=== PATIENT | male | born 1995 | race Caucasian/White ===

== ENCOUNTER 2020-04-10 13:13 | Emergency (ER) | payer MEDICAID ==
[~2020-04-10] VITALS: Ht 172.7 cm; Wt 80.0 kg
[2020-04-10] MEDS ORDERED: HYDROXYZINE 25MG TABLET PO ONE (14:45)
[2020-04-10 16:00] VITALS: BP 122/70
== END 2020-04-10 17:13 | disposition home or self-care (01) ==
LOC: ER 13:13
DX: R07.89 Other chest pain (principal); R51.9 Headache, unspecified; F41.9 Anxiety disorder, unspecified; Z86.59 Personal history of other mental and behavioral disorders
CPT/HCPCS: 36415; 71045; 84484; 93005; 99285